=== PATIENT | female | born 1990 | race American Indian/Alaskan Native ===

== ENCOUNTER 2016-04-30 22:05 | Emergency (ER) | payer MEDICAID ==
[2016-04-30] MEDS ORDERED: TYLENOL PO ONE ×2 (23:31→23:45)
[2016-05-01 02:11] LABS: Bilirubin,Urine NEG (Negative); Blood,Urine NEG (Negative); Ketones,Urine NEG (Negative); Leukocyte Esterase,Urine NEG (Negative); Mucus,Urine 1+ /HPF; Nitrite,Urine NEG (Negative); Protein,Urine <15 mg/dL mg/dL (Negative)
[2016-05-01] MEDS ORDERED: MOTRIN PO ONE (03:46)
--- NOTE | 2016-05-01 03:50 | Emergency Department Report ---
ED Fever HPI - General Chief Complaint: Fever Stated Complaint: FEVER/FLU SX Time Seen by Provider: 05/01/16 02:51 - History of Present Illness Initial Comments: 25-year-old female comes in complaint of fever chills body aches and cough for 3 days. Patient reports that today has gotten worse therefore she came in. She reports that she's been taking ibuprofen 800 mg and Mucinex without much relief. Patient denies any dysuria no abdomen pain no nausea no vomiting. Is no past medical history of anything significant no known drug allergies Fever Therapy [employer]: cold remedies, Ibuprofen ED Review of Systems ROS: Stated complaint: FEVER/FLU SX Other details as noted in HPI Constitutional: chills, fever Respiratory: cough ED Past Medical Hx - Past Medical History Previous Medical History?: Yes Hx Asthma: Yes Additional medical history: heart mummer - Surgical History Past Surgical History?: Yes Additional Surgical History: - Medications Home Medications: Home Medications Medication Instructions Recorded Confirmed Last Taken Type Ibuprofen [Motrin 800 MG tab] 800 mg PO ONCE #30 tablet 05/01/16 Unknown Rx Promethazine /Codeine 5 ml PO Q6H PRN #100 ml 05/01/16 Unknown Rx [Phenergan/Codeine 6.25-10 mg/5 ml] ED Physical Exam - General Limitations: No Limitations General appearance: alert, in no apparent distress - Head Head exam: Present: atraumatic, normocephalic - Eye Eye exam: Present: normal appearance - ENT ENT exam: Present: mucous membranes moist, TM's normal bilaterally - Neck Neck exam: Present: normal inspection. Absent: tenderness, lymphadenopathy - Respiratory Respiratory exam: Present: normal lung sounds bilaterally. Absent: respiratory distress - Cardiovascular Cardiovascular Exam: Present: normal rhythm, normal heart sounds - GI/Abdominal GI/Abdominal exam: Present: soft. Absent: distended, tenderness ED Course Vital Signs 04/30/16 04/30/16 04/30/16 23:18 23:39 23:56 Temperature 101.1 F H Pulse Rate 109 H Respiratory 22 22 22 Rate Blood Pressure 143/97 Blood Pressure [Right] O2 Sat by Pulse 100 Oximetry 05/01/16 04:11 Temperature 97.9 F Pulse Rate 76 Respiratory 16 Rate Blood Pressure Blood Pressure 124/90 [Right] O2 Sat by Pulse 98 Oximetry ED Medical Decision Making - Medical Decision Making Patient's been evaluated by this provider in fast track. We will order patient ibuprofen 800 mg now. Would discharge patient on promethazine with codeine. Critical care attestation.: If time is entered above; I have spent that time in minutes in the direct care of this critically ill patient, excluding procedure time. ED Disposition Disposition: DISCHARGED TO HOME OR SELFCARE Is pt being admited?: No Does the pt Need Aspirin: No Condition: Stable Instructions: Viral Syndrome (ED) Additional Instructions: Is importantly to follow with the primary care provider with emergency room if there is no improvement after one week. Prescriptions: Ibuprofen [Motrin 800 MG tab] 800 mg PO ONCE #30 tablet Promethazine /Codeine [Phenergan/Codeine 6.25-10 mg/5 ml] 5 ml PO Q6H PRN #100 ml PRN Reason: cough Referrals: PRIMARY CARE, [Primary Care Provider] - 3-5 Days Forms: Accompanied Note, Work/School Release Form(ED)
[2016-05-01 04:12] VITALS: BP 124/90
== END 2016-05-01 04:08 | disposition home or self-care (01) ==
LOC: ED 22:05
DX: R50.9 Fever, unspecified (principal); M79.1 Myalgia; R05 Cough; J45.909 Unspecified asthma, uncomplicated
CPT/HCPCS: 81001; 81025; 99283